=== PATIENT | male | born 1950 | race Caucasian/White ===

== ENCOUNTER 2016-04-05 17:54 | Emergency (ER) | payer MEDICARE ==
[~2016-04-05 17:54] MED LIST: IBUP600 PO; LORTA5 PO; METO25 PO
[2016-04-05 18:01] VITALS: BP 183/85; PULSE 87; RESP 20; TEMP 97.5; O2SAT 97
[2016-04-05] MEDS ORDERED: SODIUM CHLOR 0.9% 1000 ML INJ 1,000 ML IV SCH (18:03)
[2016-04-05 18:05] VITALS: O2SAT 97
[2016-04-05] MEDS ORDERED: SODIUM CHLORIDE 0.9% FLUSH 5 ML FLUSH IVF PRN (18:15)
[2016-04-05] MEDS ORDERED: HYDROmorphone HCL PF 1 MG/ML VIAL IVS ONE (18:15)
[2016-04-05] MEDS ORDERED: ONDANSETRON HCL 4 MG/2 ML VIAL IVP ONE (18:15)
[2016-04-05 18:25] VITALS: BP 161/89; PULSE 84; RESP 18; O2SAT 98
[2016-04-05 18:26] LABS: AUTOMATED NEUTROPHIL # 5.9 TH/MM3 (1.8-7.7); BASOPHIL # 0.1 TH/MM3 (0-0.2); BASOPHIL % 0.9 % (0.0-2.0); EOSINOPHIL # 0.2 TH/MM3 (0-0.4); EOSINOPHIL % 2.1 % (0.0-4.0); HEMATOCRIT 44.5 % (39.0-51.0); HEMO FLAGS DIFF FINAL; LYMPH % 32.1 % (9.0-44.0); LYMPHOCYTE # 3.4 TH/MM3 (1.0-4.8); MEAN CELL VOLUME 93.6 FL (80.0-100.0); MEAN CORPUSCULAR HEMOGLOBIN 30.4 PG (27.0-34.0); MEAN CORPUSCULAR HGB CONC 32.5 % (32.0-36.0); MONO % 8.4 % (0.0-8.0); NEUT % 56.5 % (16.0-70.0); PLATELET COUNT 312 TH/MM3 (150-450); RED BLOOD COUNT 4.75 MIL/MM3 (4.50-5.90); RED CELL DISTRIBUTION WIDTH 14.4 % (11.6-17.2); WHITE BLOOD COUNT 10.5 TH/MM3 (4.0-11.0)
[2016-04-05 18:34] LABS: CHLORIDE 108 MEQ/L (98-107); POTASSIUM 4.1 MEQ/L (3.5-5.1); SODIUM (NA) 144 MEQ/L (136-145)
--- NOTE | 2016-04-05 18:34 | PD ---
HPI Chief Complaint: Abdominal Pain Time Seen by Provider: 18:00 Travel History International Travel<30 days: No Contact w/Intl Traveler<30days: No Traveled to known affect area: No History of Present Illness HPI This is a 65-year-old male who presents the emergency department with history of kidney stones with severe left lower quadrant abdominal pain that started abruptly earlier in the day, constant, radiating into his groin feeling like he has to urinate but unable to. His pain radiates to the back. He feels nauseous. He said he tried to take one of his brothers pain medications but it didn't help and he feels like it might a made it worse. He denies any fevers or chills. He says this feels similar to kidney stones had in the past. PFSH Past Medical History Blood Disorders: No Anxiety: Yes Cancer: No Cardiovascular Problems: Yes (TRIPLE BYPASS) Endocrine: No Gastrointestinal Disorders: Yes (HERNIA) Genitourinary: Yes Immune Disorder: No Kidney Stones: Yes Musculoskeletal: Yes Neurologic: No Psychiatric: Yes Respiratory: No Past Surgical History Cardiac Surgery: Yes (TRIPLE BYPASS) Other Surgery: Yes (KIDNEY STONES) Social History Alcohol Use: No Tobacco Use: Yes Substance Use: No Allergies-Medications (Allergen,Severity, Reaction): Coded Allergies: Milk Solids (Verified Allergy, Mild, 04/05/16) MILK PRODUCTS Codeine (Verified Adverse Reaction, Unknown, Nausea/Vomiting, 04/05/16) Reported Meds & Prescriptions Reported Meds & Active Scripts Active No Active Prescriptions or Reported Medications Review of Systems Except as stated in HPI: all other systems reviewed are Neg Physical Exam Narrative GENERAL: Uncomfortable appearing, writhing in pain SKIN: Warm and dry. HEAD: Atraumatic. Normocephalic. EYES: Pupils equal and round. No injection or drainage. ENT: Moist mucous membranes NECK: Trachea midline. CARDIOVASCULAR: Regular rate and rhythm. No murmur appreciated. RESPIRATORY: Clear to auscultation. Breath sounds equal bilaterally. GASTROINTESTINAL: Abdomen soft, tender to palpation in the left lower quadrant with no rebound or guarding. Reducible right inguinal hernia. MUSCULOSKELETAL: No obvious deformities. NEUROLOGICAL: Awake and alert. No obvious cranial nerve deficits. Moving all extremities. PSYCHIATRIC: Appropriate mood and affect; insight and judgment normal. Data Data Last Documented VS Vital Signs Date Time Temp Pulse Resp B/P Pulse Ox O2 Delivery O2 Flow Rate FiO2 04/05/16 18:25 84 18 161/89 98 Room Air 04/05/16 18:01 97.5 Orders Complete Blood Count With Diff (04/05/16 18:03) Comprehensive Metabolic Panel (04/05/16 18:03) Urinalysis - C+S If Indicated (04/05/16 18:03) Iv Access Insert/Monitor (04/05/16 18:03) Ecg Monitoring (04/05/16 18:03) Oximetry (04/05/16 18:03) Ondansetron Inj (Zofran Inj) (04/05/16 18:15) Sodium Chlor 0.9% 1000 Ml Inj (Ns 1000 M (04/05/16 18:03) Sodium Chloride 0.9% Flush (Ns Flush) (04/05/16 18:15) Hydromorphone Pf Inj (Dilaudid Pf Inj) (04/05/16 18:15) Ed Poc Ultrasound (04/05/16 18:03) Ct Abd/Pel W/O Iv Contrast (04/05/16 ) Hydromorphone Pf Inj (Dilaudid Pf Inj) (04/05/16 18:45) Cath For Specimen (04/05/16 18:59) Hydromorphone Pf Inj (Dilaudid Pf Inj) (04/05/16 19:15) Labs Laboratory Tests Test 04/05/16 18:00 White Blood Count 10.5 TH/MM3 Red Blood Count 4.75 MIL/MM3 Hemoglobin 14.4 GM/DL Hematocrit 44.5 % Mean Corpuscular Volume 93.6 FL Mean Corpuscular Hemoglobin 30.4 PG Mean Corpuscular Hemoglobin 32.5 % Concent Red Cell Distribution Width 14.4 % Platelet Count 312 TH/MM3 Mean Platelet Volume 9.3 FL Neutrophils (%) (Auto) 56.5 % Lymphocytes (%) (Auto) 32.1 % Monocytes (%) (Auto) 8.4 % Eosinophils (%) (Auto) 2.1 % Basophils (%) (Auto) 0.9 % Neutrophils # (Auto) 5.9 TH/MM3 Lymphocytes # (Auto) 3.4 TH/MM3 Monocytes # (Auto) 0.9 TH/MM3 Eosinophils # (Auto) 0.2 TH/MM3 Basophils # (Auto) 0.1 TH/MM3 CBC Comment DIFF FINAL Differential Comment Sodium Level 144 MEQ/L Potassium Level 4.1 MEQ/L Chloride Level 108 MEQ/L Carbon Dioxide Level 27.1 MEQ/L Anion Gap 9 MEQ/L Blood Urea Nitrogen 15 MG/DL Creatinine 1.30 MG/DL Estimat Glomerular Filtration 55 ML/MIN Rate Random Glucose 110 MG/DL Calcium Level 8.9 MG/DL Total Bilirubin 0.4 MG/DL Aspartate Amino Transf 15 U/L (AST/SGOT) Alanine Aminotransferase 17 U/L (ALT/SGPT) Alkaline Phosphatase 75 U/L Total Protein 7.8 GM/DL Albumin 4.1 GM/DL MDM Medical Decision Making Medical Screen Exam Complete: Yes Emergency Medical Condition: Yes Interpretation(s) No leukocytosis Differential Diagnosis Nephrolithiasis, abdominal aortic aneurysm rupture, acute urinary retention, urinary tract infection, pyelonephritis, incarcerated inguinal hernia Narrative Course This is a 65-year-old male who presents to the emergency department and severe left lower quadrant abdominal pain. He has a history kidney stones in the past and says this feels similar. On arrival he was ill-appearing, uncomfortable, writhing in bed. I performed a stat [id number] ultrasound which was reassuring with no evidence of ruptured abdominal aortic aneurysm. I don't appreciate any hydronephrosis on bedside ultrasound. I also did not appreciate a full bladder. Patient was given IV pain control, antiemetics and fluids and a stat CT will be obtained for likely nephrolithiasis. Procedures Procedure Narrative [id number] ultrasound: Abdominal aorta was evaluated in transverse and longitudinal views. Proximal aorta measured 1.85 cm. Mid aorta measured 1.61 cm. Iliacs measured 1.6 cm on the right and 2.2 cm on the left. Bilateral kidneys were visualized with no evidence of overt hydronephrosis. There is no evidence of a distended bladder. Scripts No Active Prescriptions or Reported Meds Luci Ferro MD Apr 05, 2016 18:34
[2016-04-05 18:40] LABS: ANION GAP 9 MEQ/L (5-15); BICARBONATE 27.1 MEQ/L (21.0-32.0); BLOOD UREA NITROGEN 15 MG/DL (7-18)
[2016-04-05 18:43] LABS: ALT (GPT) 17 U/L (12-78); AST (GOT) 15 U/L (15-37); GLOMERULAR FILTRATION RATE 55 ML/MIN (>89)
[2016-04-05 18:44] LABS: TOTAL BILIRUBIN ADULT 0.4 MG/DL (0.2-1.0)
[2016-04-05] MEDS ORDERED: HYDROmorphone HCL PF 1 MG/ML VIAL IV PUSH ONE ×2 (18:45→19:15)
[2016-04-05 18:46] LABS: ALKALINE PHOSPHATASE 75 U/L (45-117)
--- NOTE | 2016-04-05 19:09 | RADHPO ---
EXAM DATE/TIME: 04/05/2016 18:43 [facility] COMPARISON: No previous studies available for comparison. INDICATIONS : Right lower quadrant pain and nausea. ORAL CONTRAST: No oral contrast ingested. RADIATION DOSE: 7.94 CTDIvol (mGy) MEDICAL HISTORY : Renal calculi. Situs inversus and dextrocardia. SURGICAL HISTORY : None. ENCOUNTER: Initial ACUITY: 1 day PAIN SCALE: 10/10 LOCATION: Right lower quadrant TECHNIQUE: Volumetric scanning of the abdomen and pelvis was performed. Using automated exposure control and ad justment of the mA and/or kV according to patient size, radiation dose was kept as low as reasonably achievable to obtain optimal diagnostic quality images. FINDINGS: There is situs inversus. LOWER LUNGS: The visualized lower lungs are clear. LIVER: Homogeneous density without lesion. There is no dilation of the biliary tree. No calcified gallston es. SPLEEN: Normal size without lesion. PANCREAS: Within normal limits. KIDNEYS: Normal in size and shape. There is no mass or hydronephrosis on the right. Hydronephrosis on the lef t and hydroureter leading to the bladder. Several calculi are clustered in the lower pole left kidney measuring 2-6 mm in size. ADRENAL GLANDS: Within normal limits. VASCULAR: Bulging of the abdominal aorta with diffuse atherosclerotic changes but no aortic aneurysm. BOWEL/MESENTERY: Diverticulosis of the colon. There is no free intraperitoneal air or fluid. ABDOMINAL WALL: Within normal limits. RETROPERITONEUM: There is no lymphadenopathy. BLADDER: No wall thickening or mass. The 4 mm calculus in the posterior left urinary bladder. REPRODUCTIVE: Within normal limits. INGUINAL: Right inguinal hernia containing small bowel loop. The size attenuation or structure. There is no lym phadenopathy or hernia on the left. MUSCULOSKELETAL: Within normal limits for patient age. CONCLUSION: 1. Right inguinal hernia containing small bowel loops without signs of obstruction or strangulation. 2. Diverticulosis without diverticulitis. 3. Mild obstructive uropathy in the left secondary to recent passage of a calculus measuring 4 mm in the posterior left urinary bladder. 4. Multiple non-shadowing calculi clustered in the lower pole left kidney measuring 2-6 mm in size. 5. Situs inversus. Jack Rodriguez MD on April 05, 2016 at 19:02 Board Certified Radiologist. This report was verified electronically.
--- NOTE | 2016-04-05 19:12 | PD ---
Physical Exam Narrative Received sign out from previous team to follow up UA, CTa/p and reevaluate patient. Please see previous provider's note for further details. 65yo M with PMH of nephrolithiasis, hernia here with left flank and abdominal pain. Labs reviewed, no leukocytosis. CMP unremarkable. Creatinine 1.30 VS stable. UA showed large blood, culture not indicated. Pt given multiple doses of pain medication. Pt reevaluated at bedside and now is feeling much better. Pt states his abdominal pain and flank pain resolved. Abd: soft, NT/ND. CT a/ p showed right inguinal hernia with small bowel loops without signs of obstruction or strangulation. Pt has had the hernia for 8-9 months and has no pain now. Mild obstructive uropathy in left secondary to recent passage of a calculus measuring 4mm in posterior left urinary bladder. Situs inversus. VS stable. Return precautions given. Data Data Last Documented VS Vital Signs Date Time Temp Pulse Resp B/P Pulse Ox O2 Delivery O2 Flow Rate FiO2 04/05/16 20:11 78 18 168/87 99 04/05/16 19:32 Room Air 04/05/16 18:01 97.5 Orders Complete Blood Count With Diff (04/05/16 18:03) Comprehensive Metabolic Panel (04/05/16 18:03) Urinalysis - C+S If Indicated (04/05/16 18:03) Iv Access Insert/Monitor (04/05/16 18:03) Ecg Monitoring (04/05/16 18:03) Oximetry (04/05/16 18:03) Ondansetron Inj (Zofran Inj) (04/05/16 18:15) Sodium Chlor 0.9% 1000 Ml Inj (Ns 1000 M (04/05/16 18:03) Sodium Chloride 0.9% Flush (Ns Flush) (04/05/16 18:15) Hydromorphone Pf Inj (Dilaudid Pf Inj) (04/05/16 18:15) Ed Poc Ultrasound (04/05/16 18:03) Ct Abd/Pel W/O Iv Contrast (04/05/16 ) Hydromorphone Pf Inj (Dilaudid Pf Inj) (04/05/16 18:45) Cath For Specimen (04/05/16 18:59) Hydromorphone Pf Inj (Dilaudid Pf Inj) (04/05/16 19:15) Labs Laboratory Tests Test 04/05/16 04/05/16 18:00 19:10 White Blood Count 10.5 TH/MM3 Red Blood Count 4.75 MIL/MM3 Hemoglobin 14.4 GM/DL Hematocrit 44.5 % Mean Corpuscular Volume 93.6 FL Mean Corpuscular Hemoglobin 30.4 PG Mean Corpuscular Hemoglobin 32.5 % Concent Red Cell Distribution Width 14.4 % Platelet Count 312 TH/MM3 Mean Platelet Volume 9.3 FL Neutrophils (%) (Auto) 56.5 % Lymphocytes (%) (Auto) 32.1 % Monocytes (%) (Auto) 8.4 % Eosinophils (%) (Auto) 2.1 % Basophils (%) (Auto) 0.9 % Neutrophils # (Auto) 5.9 TH/MM3 Lymphocytes # (Auto) 3.4 TH/MM3 Monocytes # (Auto) 0.9 TH/MM3 Eosinophils # (Auto) 0.2 TH/MM3 Basophils # (Auto) 0.1 TH/MM3 CBC Comment DIFF FINAL Differential Comment Sodium Level 144 MEQ/L Potassium Level 4.1 MEQ/L Chloride Level 108 MEQ/L Carbon Dioxide Level 27.1 MEQ/L Anion Gap 9 MEQ/L Blood Urea Nitrogen 15 MG/DL Creatinine 1.30 MG/DL Estimat Glomerular Filtration 55 ML/MIN Rate Random Glucose 110 MG/DL Calcium Level 8.9 MG/DL Total Bilirubin 0.4 MG/DL Aspartate Amino Transf 15 U/L (AST/SGOT) Alanine Aminotransferase 17 U/L (ALT/SGPT) Alkaline Phosphatase 75 U/L Total Protein 7.8 GM/DL Albumin 4.1 GM/DL Urine Color PINK Urine Turbidity SLIGHT Urine pH 7.0 Urine Specific [place] 1.018 Urine Protein TRACE mg/dL Urine Glucose (UA) NEG mg/dL Urine Ketones NEG mg/dL Urine Occult Blood LARGE Urine Nitrite NEG Urine Bilirubin NEG Urine Leukocyte Esterase NEG Urine RBC 100-200 /hpf Urine WBC 3-5 /hpf Urine Squamous Epithelial 6-8 /hpf Cells Urine Bacteria RARE /hpf Microscopic Urinalysis Comment CULT NOT INDICATED MDM Supervised Visit with JOLIE: No Diagnosis Primary Impression: Nephrolithiasis Patient Instructions: General Instructions Departure Forms: Tests/Procedures Additional Instruction: Please follow up with your PMD in 3-7 days. Return to the ED if symptoms worsen. Med/Other Pt SpecificInfo: Prescription(s) given Scripts Ibuprofen 400 Mg [id number] Mg PO Q8H PRN (PAIN SCALE 1 TO 4) #20 TAB Ref 0 Prov:Doretha Kwon DO 04/05/16 Tamsulosin (Flomax)0.4 Mg Cap0.4 Mg PO HS 5 Days Ref 0 Prov:Doretha Kwon DO 04/05/16 Disposition: 01 DISCHARGE HOME Condition: Stable Doretha Kown DO Apr 05, 2016 19:12
[2016-04-05 19:27] LABS: BLOOD, URINE LARGE (NEG); GLUCOSE,URINE NEG (NEG); KETONE, URINE NEG (NEG); NITRITE,URINE NEG (NEG)
[2016-04-05 19:32] VITALS: BP 116/70; PULSE 80; RESP 20; O2SAT 98
[2016-04-05 19:35] LABS: BACTERIA, URINE RARE /hpf; COMMENT (UR) CULT NOT INDICATED; CULTURE IF INDICATED CULT NOT INDICATED; RBC, URINE 100-200 /hpf (0-3); URINE COLOR PINK (YELLW/STRAW)
[2016-04-05] MEDS ORDERED: IBUP400T20 PO (19:50)
[2016-04-05] MEDS ORDERED: TAMS5CAP PO (19:50)
[2016-04-05 20:11] VITALS: BP 168/87
== END 2016-04-05 20:18 | disposition home or self-care (01) ==
LOC: PHEFT 17:54
DX: N20.0 Calculus of kidney (principal)
CPT/HCPCS: 74176; 80053; 81001; 85025; 96361; 96374; 96375; 96376; 99284; J1170; J2405; J7030; P9612

== ENCOUNTER 2017-01-24 19:58 | Inpatient (IN) | payer MEDICARE ==
[~2017-01-24] VITALS: Ht 177.8 cm; Wt 64.7 kg
[~2017-01-24 19:58] MED LIST changes: +IBUP400T20 PO; -IBUP600 PO; -LORTA5 PO; -METO25 PO; +TAMS5CAP PO
[2017-01-24 20:06] VITALS: BP 142/83; PULSE 78; RESP 20; TEMP 98.5; O2SAT 99
[2017-01-24] MEDS ORDERED: DIAZ5TAB PO ×2 (20:17)
[2017-01-24] MEDS ORDERED: ASPI325T PO ×2 (20:19)
[2017-01-24] MEDS ORDERED: SODIUM CHLORIDE 0.9% FLUSH 10 ML FLUSH IVF PRN ×2 (20:45)
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
[2017-01-24 21:01] LABS: HEMATOCRIT 43.8 % (39.0-51.0); HEMOGLOBIN 14.4 GM/DL (13.0-17.0); MEAN CELL VOLUME 90.8 FL (80.0-100.0); MEAN CORPUSCULAR HEMOGLOBIN 29.9 PG (27.0-34.0); MEAN CORPUSCULAR HGB CONC 32.9 % (32.0-36.0); MEAN PLATELET VOLUME 9.3 FL (7.0-11.0); PLATELET COUNT 268 TH/MM3 (150-450); RED BLOOD COUNT 4.83 MIL/MM3 (4.50-5.90); RED CELL DISTRIBUTION WIDTH 13.6 % (11.6-17.2); WHITE BLOOD COUNT 10.8 TH/MM3 (4.0-11.0)
[2017-01-24 21:09] LABS: CHLORIDE 105 MEQ/L (98-107); SODIUM (NA) 139 MEQ/L (136-145)
[2017-01-24 21:13] LABS: ALBUMIN 4.1 GM/DL (3.4-5.0); BICARBONATE 24.5 MEQ/L (21.0-32.0); BLOOD UREA NITROGEN 10 MG/DL (7-18); CALCIUM 8.7 MG/DL (8.5-10.1); GLUCOSE,RANDOM 87 MG/DL (74-106)
[2017-01-24 21:16] LABS: ALT (GPT) 18 U/L (12-78); AST (GOT) 16 U/L (15-37); GLOMERULAR FILTRATION RATE 60 ML/MIN (>89)
[2017-01-24 21:18] LABS: TOTAL BILIRUBIN ADULT 0.5 MG/DL (0.2-1.0); TOTAL PROTEIN 8.2 GM/DL (6.4-8.2)
[2017-01-24 21:19] LABS: ALKALINE PHOSPHATASE 94 U/L (45-117)
[2017-01-24 21:20] LABS: BANDS 1 % (0-6); LYMPHOCYTES 24 % (9-44); MONOCYTES 5 % (0-8); NEUTROPHIL # MANUAL DIFF 7.7 TH/MM3 (1.8-7.7); POLYS (SEG NEUTROPHILS) 70 % (16-70)
[2017-01-24 21:21] VITALS: BP 139/85; PULSE 70; RESP 16; O2SAT 97
[2017-01-24 21:21] LABS: TROPONIN I LESS THAN 0.02 NG/ML (0.02-0.05)
[2017-01-24 21:24] LABS: INTERNATIONAL NORMALIZED RATIO 0.9 RATIO
--- NOTE | 2017-01-24 21:25 | RADRPT ---
EXAM DATE/TIME: 01/24/2017 21:06 [facility] COMPARISON: No previous studies available for comparison. INDICATIONS : Right sided weakness. Slurred speech. RADIATION DOSE: 62.64 CTDIvol (mGy) MEDICAL HISTORY : Cardiovascular disease. SURGICAL HISTORY : None. ENCOUNTER: Initial ACUITY: 1 day PAIN SCALE: 0/10 LOCATION: cranial TECHNIQUE: Multiple contiguous axial images were obtained of the head. Using automated exposure control and adj ustment of the mA and/or kV according to patient size, radiation dose was kept as low as reasonably a chievable to obtain optimal diagnostic quality images. DICOM format image data is available electro nically for review and comparison. FINDINGS: CEREBRUM: The ventricles are normal for age. No evidence of midline shift, mass lesion, or hemorrhage. There i s a small 6 mm low attenuation area in the left basal ganglia on axial image #12. No extra-axial flui d collections are seen. POSTERIOR FOSSA: The cerebellum and brainstem are intact. The 4th ventricle is midline. The cerebellopontine angle i s unremarkable. EXTRACRANIAL: The visualized portion of the orbits is intact. SKULL: The calvaria is intact. No evidence of skull fracture. CONCLUSION: 1. No acute hemorrhage or mass effect. 2. Small 6 mm low attenuation area in the left basal ganglia likely representing an area of remote la cunar infarction. Adam Shipley MD on January 24, 2017 at 21:22 Board Certified Radiologist. This report was verified electronically.
--- NOTE | 2017-01-24 21:30 | RADRPT ---
EXAM DATE/TIME: 01/24/2017 20:56 [facility] COMPARISON: CHEST SINGLE AP, January 11, 2010, 17:17. INDICATIONS : Slurred speech, right arm numbness today MEDICAL HISTORY : Situs Inversus SURGICAL HISTORY : CABG. ENCOUNTER: Initial ACUITY: 1 day PAIN SCORE: 0/10 LOCATION: Bilateral chest FINDINGS: 2 AP portable erect views of the chest were obtained and again demonstrates situs inversus. Patient i s again noted to be status post median sternotomy. The heart size is within normal limits with no con fluent infiltrates or effusions. Chronic biapical pleural-parenchymal changes noted consistent with s carring. The bony thorax is otherwise intact. CONCLUSION: 1. No acute cardiac pulmonary disease. 2. Situs inversus. 3. Status post cholecystectomy with scarring in the lung apices. Adam Shipley MD on January 24, 2017 at 21:28 Board Certified Radiologist. This report was verified electronically.
[2017-01-24] MEDS ORDERED: SODIUM CHLORIDE 0.9% FLUSH 5 ML FLUSH IV FLUSH PRN ×2 (22:15)
[2017-01-24] MEDS ORDERED: DEXTROSE 50% IN WATER 50 ML VIAL(D50) IV PUSH PRN (22:15)
[2017-01-24] MEDS ORDERED: GLUCAGON 1 MG/ML VIAL OTHER PRN ×2 (22:15)
[2017-01-24] MEDS: SODIUM CHLOR 0.9% 1000 ML INJ 1,000 ML IV SCH ×2 (23:06)
[2017-01-24 23:16] VITALS: BP 140/78; PULSE 63; O2SAT 98
[2017-01-24 23:30] VITALS: BP 125/91; PULSE 59; RESP 16; TEMP 97.9; O2SAT 97
[2017-01-24 23:41] VITALS: PULSE 60
[2017-01-25] VITALS (7 sets, daily range): BP systolic 106–123; BP diastolic 68–72; PULSE 54–69; RESP 16–20; TEMP 96.4–98.7; O2SAT 94–97
[2017-01-25] MEDS: HEPARIN SODIUM - SQ 10,000 UNITS/ML VIAL SQ SCH ×6 (05:12→20:31)
[2017-01-25 06:32] LABS: AUTOMATED NEUTROPHIL # 4.7 TH/MM3 (1.8-7.7); BASOPHIL # 0.1 TH/MM3 (0-0.2); BASOPHIL % 1.2 % (0.0-2.0); EOSINOPHIL # 0.2 TH/MM3 (0-0.4); EOSINOPHIL % 2.6 % (0.0-4.0); HEMATOCRIT 40.2 % (39.0-51.0); HEMOGLOBIN 13.3 GM/DL (13.0-17.0); LYMPH % 35.1 % (9.0-44.0); LYMPHOCYTE # 3.2 TH/MM3 (1.0-4.8); MEAN CELL VOLUME 91.3 FL (80.0-100.0); MEAN CORPUSCULAR HEMOGLOBIN 30.2 PG (27.0-34.0); MEAN CORPUSCULAR HGB CONC 33.1 % (32.0-36.0); MEAN PLATELET VOLUME 9.1 FL (7.0-11.0); MONO % 8.5 % (0.0-8.0); MONOCYTE # 0.8 TH/MM3 (0-0.9); NEUT % 52.6 % (16.0-70.0); PLATELET COUNT 254 TH/MM3 (150-450); RED BLOOD COUNT 4.41 MIL/MM3 (4.50-5.90); RED CELL DISTRIBUTION WIDTH 13.6 % (11.6-17.2)
[2017-01-25 06:55] LABS: CHLORIDE 108 MEQ/L (98-107); SODIUM (NA) 143 MEQ/L (136-145)
[2017-01-25 07:01] LABS: CALCIUM 8.4 MG/DL (8.5-10.1)
[2017-01-25 07:02] LABS: BICARBONATE 27.4 MEQ/L (21.0-32.0); BLOOD UREA NITROGEN 12 MG/DL (7-18); GLUCOSE,RANDOM 85 MG/DL (74-106)
[2017-01-25 07:05] LABS: GLOMERULAR FILTRATION RATE 60 ML/MIN (>89)
[2017-01-25] MEDS: SODIUM CHLORIDE 0.9% FLUSH 5 ML FLUSH IV FLUSH SCH ×4 (08:17→20:28)
[2017-01-25] MEDS: INSULIN ASPART SUPPLEMENTAL SCALE SQ SCH ×8 (08:17→21:00)
[2017-01-25] MEDS ORDERED: ASPIRIN EC 81 MG TABEC PO SCH ×2 (09:00)
--- NOTE | 2017-01-25 09:24 | RADRPT ---
EXAM DATE/TIME: 01/25/2017 08:39 [facility] COMPARISON: No previous studies available for comparison. INDICATIONS : Syncope. MEDICAL HISTORY : Gastroesophageal reflux disease. Renal calculi. Syncope. Measles. Dextrocardio. SURGICAL HISTORY : CABG. Cardiac cath. Left inguinal hernia repair. ENCOUNTER: Initial ACUITY: 1 day PAIN SCORE: 10 LOCATION: Bilateral neck PEAK SYSTOLIC VELOCITIES (cm/sec): ICA/CCA RATIO: Right: 1.5 Left: 1.0 ICA: Right: 101 Left: 74 CCA: Right: 66 Left: 77 ECA: Right: 51 Left: 55 VERTEBRAL: Right: 30 antegrade Left: 50 antegrade Elevated flow velocities and ICA/CCA ratios have been found to correlate with increased degrees of vessel stenosis, calculated as percentage of diameter relative to a normal segment of distal ICA/CCA FINDINGS: RIGHT CAROTID: No significant stenosis is visualized. The waveforms are within normal limits. LEFT CAROTID: No significant stenosis is visualized. The waveforms are within normal limits. VERTEBRAL ARTERIES: Antegrade flow is seen in both vertebral arteries. MISCELLANEOUS: None. CONCLUSION: No hemodynamically significant stenosis. Cas Olivera MD on January 25, 2017 at 9:22 Board Certified Radiologist. This report was verified electronically.
--- NOTE | 2017-01-25 10:13 | RADRPT ---
EXAM DATE/TIME: 01/25/2017 09:53 [facility] COMPARISON: No previous studies available for comparison. INDICATIONS : CVA. Slurred speech with right sided weakness. MEDICAL HISTORY : Coronary artery disease. SURGICAL HISTORY : CABG Inguinal hernia repair. Chest tube. ENCOUNTER: Initial ACUITY: 1 day PAIN SCORE: 0/10 LOCATION: Head. Please note a normal MRA of the brain does not entirely exclude the possibility of a small aneurysm, nor the possibility of distal intracranial vessel disease. TECHNIQUE: 3D time of flight MRA was performed. Source images, multiplanar STS MIP, and 3D volume MIP reconstru ctions were reviewed. FINDINGS: There is excellent visualization of the major intracranial arteries out to the second-order branch ve ssels. There is no evidence for aneurysm, vessel truncation or stenosis, and no evidence for vascula r malformation. There is a patent right posterior communicating artery. CONCLUSION: Unremarkable MRA of the brain. Erasmo Tolbert MD on January 25, 2017 at 10:11 Board Certified Radiologist. This report was verified electronically.
--- NOTE | 2017-01-25 10:13 | RADRPT ---
EXAM DATE/TIME: 01/25/2017 09:53 [facility] COMPARISON: CT BRAIN W/O CONTRAST, January 24, 2017, 21:06. INDICATIONS : CVA. Slurred speech and right arm weakness. MEDICAL HISTORY : Coronary artery disease. SURGICAL HISTORY : CABG Inguinal hernia repair. Chest tube. ENCOUNTER: Initial ACUITY: 1 day PAIN SCORE: 0/10 LOCATION: Head. TECHNIQUE: Multiplanar, multisequence MRI of the brain was performed without contrast. FINDINGS: CEREBRUM: The ventricles are normal for age. No evidence of midline shift, mass lesion, hemorrhage. There is a small 1 cm area of acute nonhemorrhagic infarction in the left basal ganglia. No extraaxial fluid c ollections are seen. The pituitary gland and suprasellar cistern are normal in configuration. WHITE MATTER: No significant signal abnormalities are seen in the white matter. A few high signal spots are seen bi laterally characteristic of ischemic demyelinization. This is characteristic for patient's age. POSTERIOR FOSSA: The cerebellum and brainstem are intact. The 4th ventricle is midline. The cerebellopontine angle is unremarkable. The cerebellar tonsils are normal in position. DIFFUSION IMAGING: Focal 1 cm area of restricted diffusion in the left basal ganglia characteristic of a focal acute non hemorrhagic infarct. EXTRACRANIAL: The visualized portions of the orbits and paranasal sinuses are unremarkable. CONCLUSION: Single small 1 cm focal acute nonhemorrhagic infarct in the left basal ganglia. Erasmo Tolbert MD on January 25, 2017 at 10:08 Board Certified Radiologist. This report was verified electronically.
[2017-01-25 10:56] LABS: CHOLESTEROL 233 MG/DL (120-200)
[2017-01-25 10:58] LABS: CHOLESTEROL/ HDL RATIO 5.39 RATIO; HDL CHOLESTEROL 43.2 MG/DL (40.0-60.0); HEMOGLOBIN A1C 5.7 % (4.3-6.0); LDL CHOLESTEROL 173 MG/DL (0-99); TRIGLYCERIDES 82 MG/DL (42-150)
--- NOTE | 2017-01-25 11:17 | HHI.HP ---
[facility] Service [facility] Primary Care Physician No Primary Care Physician Admission Diagnosis CVA Diagnoses: (1) CVA (cerebral vascular accident) Chief Complaint: Right sided weakness Travel History International Travel<30 Days: No Contact w/Intl Traveler <30 Da: No Traveled to Known Affected Are: No History of Present Illness Written by Patricia Dalal, acting as scribe for Dr. Pena on 01/25/17 at 10: 55. Mr. Bond is a 66-year-old male patient with a known medical history of dextrocardia, CAD with history of CABG who presented to the ED with left upper extremity weakness. Patient states around noon yesterday he was playing his keyboard and noticed right arm weakness. He states that the night before this episode he was talking on the phone for an extended amount of time and believed that maybe this weakness was due to holding the phone too long. He immediately called a friend once symptoms began and told him his speech was slurred and jumbled, advising him to go to the ER. Denies any numbness or tingling in his face or arms. Per patient his arm felt "". Denies any leg weakness. Patient denies any recent illness including fever, chills, headache, dizziness, cough, shortness of breath, diplopia, muscle aches, dizziness, abdominal pain, nausea, vomiting, diarrhea or dysuria. Review of Systems Constitutional: DENIES: Diaphoretic episodes, Fever, Chills, Dizziness Eyes: DENIES: Blurred vision, Diplopia, Eye pain Ears, nose, mouth, throat: DENIES: Hearing loss Respiratory: DENIES: Cough, Wheezing, Shortness of breath Cardiovascular: DENIES: Chest pain, Palpitations Gastrointestinal: DENIES: Abdominal pain, Constipation, Diarrhea, Nausea, Vomiting Neurologic: COMPLAINS OF: Localized weakness (right sided left upper extremity weakness), Speech Problems, DENIES: Headache Psychiatric: DENIES: Anxiety Except as stated in HPI: all other systems reviewed are Neg Past Family Social History Past Medical History Anxiety Dextrocardia CAD with CABG history 2010 GERD Right hernia present Past Surgical History Left inguinal hernia CABG - Triple bypass 2010 History of kidney stones with cystoscopy Reported Medications Active Reported Diazepam 5 Mg Tab 5 Mg PO QID Allergies: Coded Allergies: Milk Containing Products (Unverified Allergy, Mild, 01/24/17) MILK PRODUCTS codeine (Unverified Adverse Reaction, Unknown, Nausea/Vomiting, 01/24/17) Active Ordered Medications Current Medications Medications (Trade) Dose Ordered Sig/Steve Route Start Time Stop Time Status Last Admin (NS Flush) 2 ml BID IV FLUSH 01/25/17 09:00 (NS Flush) 2 ml UNSCH PRN IV FLUSH 01/24/17 22:15 Sodium Chloride 1,000 ml @ 70 mls/hr [id number] IV 01/24/17 22:09 01/24/17 23:06 (NovoLOG SUPPLEMENTAL SCALE) 1 ACHS SQ 01/25/17 08:00 (D50w (Vial) Inj) 50 ml UNSCH PRN IV PUSH 01/24/17 22:15 (Glucagon Inj) 1 mg UNSCH PRN OTHER 01/24/17 22:15 (Heparin Inj) 5,000 units Q8HR SQ 01/25/17 06:00 01/25/17 05:12 (Ecotrin Ec) 81 mg DAILY PO 01/25/17 09:00 (Valium) 5 mg QID PO 01/25/17 13:00 UNV Family History Maternal family medical history significant for TIA. Social History Does state that he smokes 2 cigarettes per day. Quit smoking 1 ppd in 2009 before CABG, has smoked most of his adult life. Denies any alcohol use. Denies any illicit drug use. Physical Exam Vital Signs Vital Signs Date Time Temp Pulse Resp B/P (MAP) Pulse Ox O2 Delivery O2 Flow Rate FiO2 01/25/17 08:00 97.4 54 18 117/68 (84) 96 01/25/17 04:00 96.4 60 16 106/71 (83) 97 01/24/17 23:41 60 01/24/17 23:30 97.9 59 16 125/91 (102) 97 01/24/17 23:20 01/24/17 23:16 63 140/78 (98) 98 Room Air 01/24/17 21:21 70 16 139/85 (103) 97 Room Air 01/24/17 20:28 Room Air 01/24/17 20:06 98.5 78 20 142/83 (102) 99 Physical Exam GENERAL: This is a well-nourished, well-developed male patient, lying in bed in no apparent distress. Awake and alert. Speech slurred. SKIN: No rashes, ecchymoses or lesions. Warm and dry. HEENT: Atraumatic. Normocephalic. Pupils equal round and reactive. Extraocular motions intact. No scleral icterus. No injection or drainage. Nose without bleeding. Throat without erythema, tonsillar hypertrophy or exudate. Uvula midline. Airway patent. Trachea midline. No JVD. Supple. CARDIOVASCULAR: Regular rate and rhythm without murmurs, gallops, or rubs. RESPIRATORY: Clear to auscultation. Breath sounds equal bilaterally. No wheezes , rales, or rhonchi. GASTROINTESTINAL: Abdomen soft, non-tender, nondistended. No guarding. MUSCULOSKELETAL: Extremities without clubbing, cyanosis, or edema. No joint tenderness, effusion, or edema noted. NEUROLOGICAL: Awake and alert. Cranial nerves II through XII intact. Motor and sensory grossly within normal limits. Five out of 5 muscle strength in all muscle groups. Laboratory Laboratory Tests Test 01/24/17 20:50 01/25/17 05:50 White Blood Count 10.8 9.0 Red Blood Count 4.83 4.41 Hemoglobin 14.4 13.3 Hematocrit 43.8 40.2 Mean Corpuscular Volume 90.8 91.3 Mean Corpuscular Hemoglobin 29.9 30.2 Mean Corpuscular Hemoglobin Concent 32.9 33.1 Red Cell Distribution Width 13.6 13.6 Platelet Count 268 254 Mean Platelet Volume 9.3 9.1 CBC Comment AUTO DIFF DIFF FINAL Differential Total Cells Counted 100 Neutrophils % (Manual) 70 Band Neutrophils % 1 Lymphocytes % 24 Monocytes % 5 Neutrophils # (Manual) 7.7 Differential Comment FINAL DIFF MANUAL Platelet Estimate NORMAL Platelet Morphology Comment NORMAL Red Cell Morphology Comment NORMAL Prothrombin Time 10.0 Prothromb Time International Ratio 0.9 Activated Partial Thromboplast Time 27.1 Blood Urea Nitrogen 10 12 Creatinine 1.20 1.20 Random Glucose 87 85 Total Protein 8.2 Albumin 4.1 Calcium Level 8.7 8.4 Alkaline Phosphatase 94 Aspartate Amino Transf (AST/SGOT) 16 Alanine Aminotransferase (ALT/SGPT) 18 Total Bilirubin 0.5 Sodium Level 139 143 Potassium Level 3.7 3.8 Chloride Level 105 108 Carbon Dioxide Level 24.5 27.4 Anion Gap 10 8 Estimat Glomerular Filtration Rate 60 60 Total Creatine Kinase 144 Troponin I LESS THAN 0.02 Neutrophils (%) (Auto) 52.6 Lymphocytes (%) (Auto) 35.1 Monocytes (%) (Auto) 8.5 Eosinophils (%) (Auto) 2.6 Basophils (%) (Auto) 1.2 Neutrophils # (Auto) 4.7 Lymphocytes # (Auto) 3.2 Monocytes # (Auto) 0.8 Eosinophils # (Auto) 0.2 Basophils # (Auto) 0.1 Result Diagram: 01/25/1750 01/25/17549 Imaging Last Impressions Head CT 01/24/172033 Signed Impressions: Service Date/Time: Sunday, January 24, 2017 21:06 - CONCLUSION: 1. No acute hemorrhage or mass effect. 2. Small 6 mm low attenuation area in the left basal ganglia likely representing an area of remote lacunar infarction. MD Jaylyn Tyler VTE Risk Assessment Caprini VTE Risk Assessment: Mod/High Risk (score >= 2) Caprini Risk Assessment Model Point Value = 1 Point Value = 2 Point Value = 3 Point Value = 5 Age 41-60 Minor surgery BMI > 25 kg/m2 Swollen legs Varicose veins or History of unexplained or recurrent spontaneous Oral contraceptives or hormone replacement Sepsis (< 1 month) Serious lung disease, including pneumonia (< 1 month) Abnormal pulmonary function Acute myocardial infarction Congestive heart failure (< 1 month) History of inflammatory bowel disease Medical patient at bed rest Age 61-74 Arthroscopic surgery Major open surgery (> 45 min) Laparoscopic surgery (> 45 min) Malignancy Confined to bed (> 72 hours) Immobilizing plaster cast Central venous access Age >= 75 History of VTE Family history of VTE Factor V Leiden Prothrombin [id number] Lupus anticoagulant Anticardiolipin antibodies Elevated serum homocysteine Heparin-induced thrombocytopenia Other congenital or acquired thrombophilia Stroke (< 1 month) Elective arthroplasty Hip, pelvis, or leg fracture Acute spinal cord injury (< 1 month) Prophylaxis Regimen Total Risk Factor Score Risk Level Prophylaxis Regimen 0-1 Low Early ambulation 2 Moderate Order ONE of the following: *Sequential Compression Device (SCD) *Heparin 5000 units SQ BID 3-4 Higher Order ONE of the following medications: *Heparin 5000 units SQ TID *Enoxaparin/Lovenox 40 mg SQ daily (WT < 150 kg, CrCl > 30 mL/min) *Enoxaparin/Lovenox 30 mg SQ daily (WT < 150 kg, CrCl > 10-29 mL/min) *Enoxaparin/Lovenox 30 mg SQ BID (WT < 150 kg, CrCl > 30 mL/min) AND/OR *Sequential Compression Device (SCD) 5 or more Highest Order ONE of the following medications: *Heparin 5000 units SQ TID (Preferred with Epidurals) *Enoxaparin/Lovenox 40 mg SQ daily (WT < 150 kg, CrCl > 30 mL/min) *Enoxaparin/Lovenox 30 mg SQ daily (WT < 150 kg, CrCl > 10-29 mL/min) *Enoxaparin/Lovenox 30 mg SQ BID (WT < 150 kg, CrCl > 30 mL/min) AND *Sequential Compression Device (SCD) Assessment and Plan Assessment and Plan Mr. Bond is a 66-year-old male patient with a known medical history of dextrocardia, CAD with history of CABG who presented to the ED with left upper extremity weakness. Patient states around noon yesterday he was playing his keyboard and noticed right arm weakness. Cerebral vascular accident, remote lacunar infarct Dysphagia secondary to above - Head CT reviewed showing no acute hemorrhage or mass effect. A small 6mm low attenuation area in the left basal ganglia likely representing an area of remote lacunar infarction. Head MRA reviewed, unremarkable. Brain MRI showing single small 1 cm focal acute nonhemorrhagic infarct in the left basal ganglia. - EKG reviewed showing SR HR 66. No ST changes. - CXR reviewed showing no acute disease. - Carotid ultrasound ordered and reviewed showing no hemodynamically significant stenosis. - Neurology consulted, appreciate further input and recommendations. - Continue neuro checks q4hr. - Lipid profile ordered and reviewed, Cholesterol 233, LDL 173. Will place on high dose Lipitor. - Consult PT eval and treat, appreciate recommendations. - Start on Aspirin 81 mg PO daily. - Nursing bedside swallow eval with coughing. ST consulted, appreciate input. Ensure hydration, NS @ 70ml/hr. History of CAD: Continue aspirin. Supportive care. Continue cardiac telemetry. Chronic anxiety: Continue home Valium scheduled. DVT Prophylaxis: SCDs/Heparin. This note was transcribed by velia Dalal. I, Dr. Ramona Pena personally performed the history, physical exam, and medical decision making; and confirmed the accuracy of the information in the transcribed note. Authenticated by Dr. Ramona Pena on 01/25/17 at 11:48. Physician Certification 2 Midnight Certification Type: Admission for Inpatient Services Order for Inpatient Services The services are ordered in accordance with Medicare regulations or non- Medicare payer requirements, as applicable. In the case of services not specified as inpatient-only, they are appropriately provided as inpatient services in accordance with the 2-midnight benchmark. Estimated LOS (days): 2 2 days is the estimated time the patient will need to remain in the hospital, assuming treatment plan goals are met and no additional complications. Post-Hospital Plan: Home Problem Qualifiers (1) CVA (cerebral vascular accident): Qualified Codes: I63.9 - Cerebral infarction, unspecified Patricia Dalal Jan 25, 2017 11:17 Ramona Pena MD Jan 25, 2017 11:48
[2017-01-25] MEDS: DIAZEPAM 5 MG TAB PO SCH ×6 (15:14→20:27)
[2017-01-25] MEDS: SODIUM CHLOR 0.9% 1000 ML INJ 1,000 ML IV SCH ×2 (15:17)
--- NOTE | 2017-01-25 16:20 | EKG ---
Date Performed: 01/24/2017 Time Performed: 20:54:48 PTAGE: 66 years EKG: Sinus rhythm WITH SINUS ARRHYTHMIA ARM LEADS REVERSED Lead reversal noted. Repeat tracing needed. ATYPICAL ECG PREVIOUS TRACING : 01/10/2010 01.20 DOCTOR: Yeyo Oneill Interpretating Date/Time 01/25/2017 16:19:10
[2017-01-25] MEDS ORDERED: DEXTROSE 50% IN WATER 50 ML VIAL(D50) IV PUSH PRN (19:00)
[2017-01-25] MEDS ORDERED: GLUCAGON 1 MG/ML VIAL OTHER PRN ×2 (19:00)
[2017-01-25] MEDS ORDERED: SODIUM CHLORIDE 0.9% FLUSH 5 ML FLUSH IV FLUSH PRN ×2 (19:00)
[2017-01-25] MEDS ORDERED: ATORVASTATIN 80 MG TAB PO SCH ×2 (21:00)
[2017-01-25] MEDS ORDERED: SODIUM CHLORIDE 0.9% FLUSH 5 ML FLUSH IV FLUSH SCH ×2 (21:00)
[2017-01-25] MEDS: ATORVASTATIN 40 MG TAB PO SCH ×2 (21:39)
--- NOTE | 2017-01-25 22:14 | MB ---
cc: MARYCARMEN MONROY M.D. DATE OF CONSULTATION 01/25/17 REASON FOR CONSULTATION Stroke. HISTORY OF PRESENT ILLNESS Mr. Bond is a very nice 66-year-old man previously in good health until about 2 days ago. He went to play the keyboard. He noticed that he had difficulty controlling the right hand due to weakness and clumsiness. He had no difficulty with speech. No weakness of the leg. His symptoms have stabilized but still feels clumsy in the right hand. PAST MEDICAL HISTORY He denies previous history of stroke or TIA. He has history of coronary artery disease, CABG procedure. History of dextrocardia, gastroesophageal reflux disease, right hernia surgery. History of kidney stones, cystoscopy. MEDICINES At home were: 1. Diazepam 5 milligrams q.i.d. ALLERGIES ALLERGIES TO MILK CONTAINING PRODUCTS. NEUROLOGIC EXAMINATION VITAL SIGNS: Blood pressure 123/71, pulse 69, respiratory rate is 18, temperature 98 degrees. NEURO: Higher cortical function, alert, oriented x3. Speech is normal. Cranial nerves intact. On motor exam he is weak in the right hand 4/5 distally with 4+/5 proximal strength. Lower extremity strength is 5/5. He has diminished fine motor skills in the right hand. Sensory exam intact. IMAGING STUDIES MRI of the brain shows a very small non-hemorrhagic stroke in the left basal ganglia measuring about 1 cm. MRA brain is normal. No evidence of any large vessel occlusion. Carotid ultrasound is normal with no sign of any significant stenosis. CT brain low attenuation left basal ganglia. LABORATORY DATA White count 9000, hemoglobin 13.3, hematocrit 40%, platelets are 254,000. Sodium is 143, potassium 3.8, chloride 108, CO2 27, the BUN is 12, creatinine 1.2, GFR 60, glucose 85, cholesterol 233, LDL 173, HDL 43.2, PT 10, INR 0.9, APTT 27.1. CARDIOLOGY STUDIES EKG sinus arrhythmia. No sign of a-fib. IMPRESSION Lacunar stroke left basal ganglia. RECOMMENDATIONS Start aspirin 325 milligrams daily. Due to the elevated LDL I agree with the Lipitor, would continue statin. Recommend echocardiogram. Continue to monitor cardiac telemetry, rule out atrial fibrillation. Consider long-term orthotic and prosthetic technician as an outpatient such as a Link recorder to rule out a-fib. Also, recommend rehab consult. MD CHANDRAKANT Sam /6:52 PM /10:02 PM
[2017-01-26] VITALS (7 sets, daily range): BP systolic 104–122; BP diastolic 64–82; PULSE 56–74; RESP 16–18; TEMP 97.2–98.2; O2SAT 96–98
[2017-01-26] MEDS: SODIUM CHLOR 0.9% 1000 ML INJ 1,000 ML IV SCH ×4 (06:08→17:14)
[2017-01-26] MEDS: HEPARIN SODIUM - SQ 10,000 UNITS/ML VIAL SQ SCH ×6 (06:11→20:08)
[2017-01-26] MEDS: INSULIN ASPART SUPPLEMENTAL SCALE SQ SCH ×8 (09:00→21:00)
[2017-01-26] MEDS: SODIUM CHLORIDE 0.9% FLUSH 5 ML FLUSH IV FLUSH SCH ×4 (09:01→20:03)
[2017-01-26] MEDS: ASPIRIN EC 325 MG TABEC PO SCH ×2 (09:02)
[2017-01-26] MEDS: DIAZEPAM 5 MG TAB PO SCH ×8 (09:02→20:06)
--- NOTE | 2017-01-26 10:30 | HHI.FF ---
Face to Face Verification Diagnosis: (1) CVA (cerebral vascular accident) Occupational Therapy Order: Evaluate and Treat Speech Therapy Order: To Improve: Speech and communication skills Home Health Nursing Order: Medical education Nursing assessment with vital signs I have seen patient Fabrice Bond on 01/26/17. My clinical findings support the need for the requested home health care services because: Deconditioned w/ increased weakness Need for psychosocial assistance I certify that my clinical findings support that this patient is homebound because: Unsteady gait/balance Need for psychosocial assistance Ramona Pena MD Jan 26, 2017 10:30
[2017-01-26] MEDS ORDERED: ASPI325T PO ×2 (10:32)
[2017-01-26] MEDS ORDERED: ATOR40TA16 PO ×2 (10:32)
--- NOTE | 2017-01-26 11:02 | HHI.PR ---
Subjective Remarks Patient feels some weakness in his right lower extremity today. PT noticed that his right hand appears to be weaker today as well. Patient continues to have intermittent dysarthria. He is swallowing and eating well. Objective Vitals Vital Signs Date Time Temp Pulse Resp B/P (MAP) Pulse Ox O2 Delivery O2 Flow Rate FiO2 01/26/17 08:00 97.3 56 16 115/69 (84) 97 01/26/17 04:00 97.7 74 16 104/64 (77) 96 01/26/17 00:00 97.2 69 16 112/80 (91) 97 01/25/17 20:55 94 21 01/25/17 20:00 98.7 61 20 120/72 (88) 96 01/25/17 16:00 98.1 69 18 123/71 (88) 96 01/25/17 15:38 60 01/25/17 12:00 97.7 62 17 121/71 (88) 95 I/O 01/25/17 01/25/17 01/25/17 01/26/17 01/26/17 01/26/17 07:00 15:00 23:00 07:00 15:00 23:00 Intake Total 959 ml 1180 ml 480 ml Output Total 300 ml 300 ml 350 ml Balance 659 ml 880 ml 130 ml Intake Oral 480 ml 480 ml IV Total 959 ml 700 ml Output Urine Total 300 ml 300 ml 350 ml # Voids 3 # Bowel Movements 0 0 0 Result Diagram: 01/25/17 0550 01/25/17 0550 Objective Remarks GENERAL: Well-nourished, well-developed male patient. SKIN: Warm and dry. HEAD: Normocephalic. EYES: No scleral icterus. No injection or drainage. NECK: Supple, trachea midline. No JVD or lymphadenopathy. CARDIOVASCULAR: Regular rate and rhythm without murmurs, gallops, or rubs. RESPIRATORY: Breath sounds equal bilaterally. No accessory muscle use. GASTROINTESTINAL: Abdomen soft, non-tender, nondistended. EXTREMITIES: No cyanosis, or edema. NEUROLOGICAL: Awake, alert, and oriented x 3. Right lower extremity straight leg raise 4 out of 5. 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 Mild dysarthria noted. A/P Problem List: (1) CVA (cerebral vascular accident) ICD Code: I63.9 - Cerebral infarction, unspecified Status: Acute Assessment and Plan Mr. Bond is a 66-year-old male patient with a known medical history of dextrocardia, CAD with history of CABG who presented to the ED with left upper extremity weakness. Patient states around noon yesterday he was playing his keyboard and noticed right arm weakness. Acute left basal ganglia CVA with dysarthria and mild right sided weakness -Brain MRI showed single small 1 cm focal acute nonhemorrhagic infarct in the left basal ganglia. MRA brain was unremarkable. Doppler carotid ultrasound negative for stenosis. - EKG reviewed showing SR HR 66. No ST changes. Has remained in sinus rhythm on telemetry. -LDL elevated at 173, patient started on high-dose Lipitor - Neurology has seen the patient, recommends full strength aspirin and statin - Continue neuro checks q4hr. patient has new weakness in the right lower extremity, I will order a head CT to evaluate stroke and rule out any hemorrhage will also notify neurology -Continue PT/OT/ST. Patient tolerating regular diet will Hep-Lock IV. History of CAD status post CABG in 2010: Continue aspirin. Supportive care. Continue cardiac telemetry. Chronic anxiety: Continue home Valium scheduled. DVT Prophylaxis: SCDs/Heparin. Problem Qualifiers (1) CVA (cerebral vascular accident): Qualified Codes: I63.9 - Cerebral infarction, unspecified Ramona Pena MD Jan 26, 2017 11:02
--- NOTE | 2017-01-26 12:01 | RADRPT ---
EXAM DATE/TIME: 01/26/2017 11:46 [facility] COMPARISON: CT BRAIN W/O CONTRAST, January 24, 2017, 21:06. INDICATIONS : Right sided weakness. Follow up cerebrovascular accident. RADIATION DOSE: 62.63 CTDIvol (mGy) MEDICAL HISTORY : Cardiovascular disease. SURGICAL HISTORY : CABG ENCOUNTER: Subsequent ACUITY: 3 days PAIN SCALE: 0/10 LOCATION: cranial TECHNIQUE: Multiple contiguous axial images were obtained of the head. Using automated exposure control and adj ustment of the mA and/or kV according to patient size, radiation dose was kept as low as reasonably a chievable to obtain optimal diagnostic quality images. DICOM format image data is available electro nically for review and comparison. FINDINGS: CEREBRUM: The ventricles are normal for age. No evidence of midline shift, mass lesion, hemorrhage or acute in farction. Stable left lacunar infarct. No extra-axial fluid collections are seen. POSTERIOR FOSSA: The cerebellum and brainstem are intact. The 4th ventricle is midline. The cerebellopontine angle i s unremarkable. EXTRACRANIAL: The visualized portion of the orbits is intact. SKULL: The calvaria is intact. No evidence of skull fracture. CONCLUSION: Negative for hemorrhage or mass effect. Josiah Rodriguez MD FACR on January 26, 2017 at 11:58 Board Certified Radiologist. This report was verified electronically.
--- NOTE | 2017-01-26 19:06 | ECHRPT ---
Indication: cva/tia CONCLUSIONS The left ventricular systolic function is low normal with an estimated ejection fraction in the rang e of 50- 55%. Trace mitral valve regurgitation. Trace aortic valve regurgitation. There is trace tricuspid valve regurgitation. BP: / HR: Rhythm: MEASUREMENTS (Male / Female) Normal Values Technical Quality:Technically difficult study 2D ECHO LV Diastolic Diameter PLAX 3.4 cm 4.2 - 5.9 / 3.9 - 5.3 cm LV Systolic Diameter PLAX 2.6 cm IVS Diastolic Thickness 1.0 cm 0.6 - 1.0 / 0.6 - 0.9 cm LVPW Diastolic Thickness 0.9 cm 0.6 - 1.0 / 0.6 - 0.9 cm LV Relative Wall Thickness 0.6 RV Internal Dim ED PLAX 2.3 cm DOPPLER Mitral E Point Velocity 51.3 cm/s Mitral A Point Velocity 55.3 cm/s Mitral E to A Ratio 0.9 LV E' Lateral Velocity 10.3 cm/s Mitral E to LV E' Lateral Ratio 5.0 LV E' Septal Velocity 8.4 cm/s Mitral E to LV E' Septal Ratio 6.1 TR Peak Velocity 235.0 cm/s TR Peak Gradient 22.1 mmHg Right Atrial Pressure 10.0 mmHg Pulmonary Artery Systolic Pressu 32.1 mmHg Right Ventricular Systolic Press 32.1 mmHg FINDINGS LEFT VENTRICLE The left ventricular systolic function is low normal with an estimated ejection fraction in the rang e of 50- 55%. Normal left ventricular size. No regional wall motion abnormalities are present. RIGHT VENTRICLE Grossly normal right ventricular size and systolic function. LEFT ATRIUM The left atrial size is normal. RIGHT ATRIUM The right atrial size is normal. ATRIAL SEPTUM The interatrial septum not well visualized. AORTA The aortic root and proximal ascending aorta are normal in size on limited imaging. MITRAL VALVE Structurally normal mitral valve. Trace mitral valve regurgitation. No mitral valve stenosis. AORTIC VALVE Trileaflet aortic valve. Trace aortic valve regurgitation. No aortic valve stenosis. TRICUSPID VALVE Structurally normal tricuspid valve. There is trace tricuspid valve regurgitation. The estimated pulmonary arterial pressure is 32.1 mmHg. PULMONARY VALVE No pulmonary valve regurgitation or stenosis. VESSELS The inferior vena cava is normal in size. PERICARDIUM No pericardial effusion. Jackson Amin DO (Electronically Signed) Final Date:26 January 2017 19:05
[2017-01-26] MEDS: ATORVASTATIN 40 MG TAB PO SCH ×2 (20:06)
[2017-01-27] VITALS: BP 109/69; PULSE 66; RESP 16; TEMP 97.3; O2SAT 97
[2017-01-27 04:00] VITALS: BP 106/75; PULSE 71; RESP 16; TEMP 97.6; O2SAT 97
[2017-01-27] MEDS: HEPARIN SODIUM - SQ 10,000 UNITS/ML VIAL SQ SCH ×4 (06:03→12:23)
[2017-01-27 08:00] VITALS: BP 130/73; PULSE 51; RESP 18; TEMP 97.7; O2SAT 96
[2017-01-27] MEDS: INSULIN ASPART SUPPLEMENTAL SCALE SQ SCH ×4 (08:00→12:00)
[2017-01-27] MEDS: SODIUM CHLOR 0.9% 1000 ML INJ 1,000 ML IV SCH ×2 (08:23)
[2017-01-27] MEDS: SODIUM CHLORIDE 0.9% FLUSH 5 ML FLUSH IV FLUSH SCH ×2 (08:24)
[2017-01-27] MEDS: DIAZEPAM 5 MG TAB PO SCH ×4 (08:24→12:22)
[2017-01-27] MEDS: ASPIRIN EC 325 MG TABEC PO SCH ×2 (08:24)
--- NOTE | 2017-01-27 13:18 | HHI.DS ---
Discharge Summary Admission Date Jan 24, 2017 at 22:10 Discharge Date: Jan 27, 2017 Admitting Diagnosis CVA (1) CVA (cerebral vascular accident) ICD Code: I63.9 - Cerebral infarction, unspecified Status: Acute Procedures None Brief History - From Admission Mr. Bond is a 66-year-old male patient with a known medical history of dextrocardia, CAD with history of CABG who presented to the ED with left upper extremity weakness. Patient states around noon yesterday he was playing his keyboard and noticed right arm weakness. He states that the night before this episode he was talking on the phone for an extended amount of time and believed that maybe this weakness was due to holding the phone too long. He immediately called a friend once symptoms began and told him his speech was slurred and jumbled, advising him to go to the ER. Denies any numbness or tingling in his face or arms. Per patient his arm felt "". Denies any leg weakness. CBC/BMP: 01/25/17 0550 01/25/17 0550 Significant Findings Laboratory Tests Test 01/24/17 20:50 01/25/17 05:50 Estimat Glomerular Filtration Rate 60 ML/MIN (>89) 60 ML/MIN (>89) Troponin I LESS THAN 0.02 NG/ML Red Blood Count 4.41 MIL/MM3 (4.50-5.90) Monocytes (%) (Auto) 8.5 % (0.0-8.0) Calcium Level 8.4 MG/DL (8.5-10.1) Chloride Level 108 MEQ/L (98-107) Cholesterol Level 233 MG/DL (120-200) LDL Cholesterol 173 MG/DL (0-99) Imaging Last Impressions Head CT 01/26/17 0000 Signed Impressions: Service Date/Time: Thursday, January 26, 2017 11:46 - CONCLUSION: Negative for hemorrhage or mass effect. Josiah Rodriguez MD FACR Head Magnetic Resonance Angiography 01/25/17 0000 Signed Impressions: Service Date/Time: January 09:53 - CONCLUSION: Unremarkable MRA of the brain. Erasmo Tolbert MD Carotid Artery Ultrasound 01/25/17 0000 Signed Impressions: Service Date/Time: January 08:39 - CONCLUSION: No hemodynamically significant stenosis. Cas Olivera MD Brain MRI 01/25/17 0000 Signed Impressions: Service Date/Time: January 09:53 - CONCLUSION: Single small 1 cm focal acute nonhemorrhagic infarct in the left basal ganglia. Erasmo Tolbert MD Chest X-Ray 01/24/172033 Signed Impressions: Service Date/Time: Tuesday, January 24, 2017 20:56 - CONCLUSION: 1. No acute cardiac pulmonary disease. 2. Situs inversus. 3. Status post cholecystectomy with scarring in the lung apices. Adam Shipley MD PE at Discharge GENERAL: Well-nourished, well-developed male patient. SKIN: Warm and dry. HEAD: Normocephalic. EYES: No scleral icterus. No injection or drainage. NECK: Supple, trachea midline. No JVD or lymphadenopathy. CARDIOVASCULAR: Regular rate and rhythm without murmurs, gallops, or rubs. RESPIRATORY: Breath sounds equal bilaterally. No accessory muscle use. GASTROINTESTINAL: Abdomen soft, non-tender, nondistended. EXTREMITIES: No cyanosis, or edema. NEUROLOGICAL: Awake, alert, and oriented x 3. Right lower extremity straight leg raise 4 out of 5. 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 Mild dysarthria noted. Pt update on day of discharge Patient doing well today. Denies any leg weakness. Feels his right hand is getting stronger in his right arm feels less heavy. Patient is doing thumb to finger opposition exercises and feels this is helping him greatly. Patient has a goal to return to playing the keyboard. Hospital Course Patient was admitted to the hospital. Brain MRI showed an acute left basal ganglia infarct. LDL was 160. Neurology was consulted and recommended statin and full-strength aspirin. Patient had no A. fib on telemetry. Doppler carotid ultrasound was negative for stenosis. Brain MRA negative. 2-D echocardiogram showed preserved LV function and no LV thrombus. Patient worked with physical therapy and occupational therapy and speech therapy. He is tolerating soft diet. He is ambulating well. Main deficits are some mild dysarthria and mild weakness in this coordination of right arm and hand. Home health care with home PT and OT and ST has been arranged. Patient was advised on smoking cessation. Patient to be discharged home today. Pt Condition on Discharge: Stable Discharge Disposition: Disch w/ Home Health Serv Discharge Time: > 30 minutes Discharge Instructions DIET: Follow Instructions for: Heart Healthy Diet Speech Therapy-Diet Recommends: Soft Activities you can perform: Regular-No Restrictions Follow up Referrals: SNF/[facility] with [facility] New Medications: Atorvastatin (Atorvastatin) 40 Mg Tab 80 MG PO HS for Cholesterol Management, #60 TAB Continued Medications: Aspirin (Aspirin) 325 Mg Tab 325 MG PO ONCE for prevent stroke, #130 TAB 0 Refills (This prescription has been renewed) Diazepam (Diazepam) 5 Mg Tab 5 MG PO QID for ANXIETY/ BACK SPASMS, TAB 0 Refills Ramona Pena MD Jan 27, 2017 13:18
[2017-01-27 14:15] VITALS: BP 141/72; PULSE 51; RESP 18; TEMP 98.1; O2SAT 98
== END 2017-01-27 16:30 | disposition home health service (06) | DRG 65 ==
LOC: PHED 19:58 → PHEDA 22:10 → PH3B 23:23
PROVIDERS: ADMIT Family Medicine; ATTEND Family Medicine
DX: I63.9 Cerebral infarction, unspecified (principal); Q24.0 Dextrocardia; R13.19 Other dysphagia; R47.1 Dysarthria and anarthria; R53.1 Weakness; I25.10 Atherosclerotic heart disease of native coronary artery without angina pectoris; Z95.1 Presence of aortocoronary bypass graft; F41.9 Anxiety disorder, unspecified; F17.210 Nicotine dependence, cigarettes, uncomplicated; K21.9 Gastro-esophageal reflux disease without esophagitis; Z86.73 Personal history of transient ischemic attack (TIA), and cerebral infarction without residual deficits
CPT/HCPCS: 70450; 70544; 70551; 71010; 80048; 80053; 80061; 82550; 82948; 83036; 84484; 85007; 85025; 85027; 85610; 85730; 93005; 93306; 93880; J1644; J7030